=== PATIENT | female | born 2000 | race Hispanic/Latino ===

== ENCOUNTER 2024-05-17 13:43 | Emergency (ER) | payer MEDICAID ==
[~2024-05-17] VITALS: Ht 157.5 cm; Wt 59.0 kg
[2024-05-17 13:45] VITALS: TEMP 98.8
[2024-05-17 14:10] LABS: BASOPHILS # (AUTO) 0.02 K/uL (0.00-0.20); BASOPHILS % (AUTO) 0.3 % (0.0-5.0); EOSINOPHILS # (AUTO) 0.12 K/uL (0.00-0.70); EOSINOPHILS % (AUTO) 1.9 % (0.0-8.0); IMMATURE GRANULOCYTE ABSOLUTE 0.02 K/uL (0-1); LYMPHOCYTES # (AUTO) 2.3 K/uL (1.0-4.8); MEAN CORPUSCULAR HEMOGLOBIN 29.1 pg (27.0-33.0); MEAN CORPUSCULAR HGB CONC 32.7 g/dL (32.0-36.0); MEAN CORPUSCULAR VOLUME 88.9 fL (79-99); MONOCYTES # (AUTO) 0.4 K/uL (0.1-1.0); MONOCYTES % (AUTO) 5.4 % (3.0-13.0); NEUTROPHILS # (AUTO) 3.7 K/uL (1.8-7.7); NEUTROPHILS % (AUTO) 57.1 % (40.0-77.0); PLATELET COUNT (AUTO) 304 K/uL (130-400); RED BLOOD CELL COUNT(AUTO) 4.61 MIL/uL (4.00-5.50); RED CELL DISTRIBUTION WIDTH 12.9 % (11.0-15.5); WHITE BLOOD COUNT (AUTO) 6.5 K/uL (4.8-10.8)
[2024-05-17 14:23] LABS: CREATININE 0.6 mg/dL (0.5-1.0); POTASSIUM 4.1 mmol/L (3.5-5.1)
--- NOTE | 2024-05-17 15:14 | HMCIMG ---
US OB <14 WEEKS REASON: vaginal bleeding during COMPARISON: None TECHNIQUE: Routine sonogram was performed. FINDINGS: Uterus is 8.1 x 3.2 x 3.7 cm. Endometrium is 4 mm. There is no evidence of an intrauterine gestational sac. Both ovaries appear normal. There are no adnexal masses. There is no abnormal vascularity. There is no free fluid in the cul-de-sac. IMPRESSION: 1. Normal pelvic sonogram. 2. These findings are nonspecific, a very early less than 5 gestation is common cause of these findings, spontaneous miscarriage can result in this appearance as well.
[2024-05-17 15:32] VITALS: BP 113/74; PULSE 68; RESP 15; O2SAT 98
[2024-05-17 15:38] LABS: APPEARANCE,URINE CLEAR (CLEAR); BILIRUBIN,URINE NEGATIVE (NEGATIVE); COLOR,URINE COLORLESS (YELLOW); GLUCOSE, URINE (UA) NEGATIVE (NEGATIVE); KETONES,URINE NEGATIVE (NEGATIVE); LEUKOCYTE ESTERASE ,URINE NEGATIVE Leu/uL (NEGATIVE); NITRATE,URINE NEGATIVE (NEGATIVE); OCCULT BLOOD,URINE LARGE (NEGATIVE); PROTEIN,URINE NEGATIVE (NEGATIVE); UROBILINOGEN,URINE 0.2 mg/dL (0.2-1.0)
--- NOTE | 2024-05-17 15:45 | ERN ---
General Chief Complaint: Vaginal Bleeding Stated Complaint: VAGINAL BLEEDING Time Seen by MD: 13:46 Time Seen by Midlevel: 13:46 Source: patient History of Present Illness Initial Comments Patient is a 23-year-old female with no significant past medical history presenting to the emergency department with lower abdominal cramping and vaginal bleeding. Patient states she received a positive test earlier this week. She reports her last menstrual period being April 05, 2024. She is a A0. She was seen at a local urgent care five days ago where she had a positive test confirmed. Yesterday she was seen at [facility] where she had an ultrasound performed however they were unable to visua lize an intrauterine gestation. At that time she had a hCG quant of 100. Allergies: Coded Allergies: No Known Drug Allergies (Unverified Allergy, Unknown, 05/17/24) Past Medical History Past Medical History: No Pertinent History Past Surgical History: None Female( History) LMP: Apr 05, 2024 : 1 Para: 0 Aborts: 0 ROS Dictation CONSTITUTIONAL: Negative except for HPI HEAD/FACE: Negative except for HPI EENT: Negative except for HPI RESPIRATORY: Negative except for HPI GASTROINTESTINAL/ABDOMINAL: Negative except for HPI GENITOURINARY: Negative except for HPI MUSCULOSKELETAL: Negative except for HPI INTEGUMENTARY: Negative except for HPI NEUROLOGICAL/PSYCH: Negative except for HPI HEMATOLOGIC/LYMPHATIC: Negative except for HPI All Systems Negative, Except as noted above. 13 point review of systems assessed and all negative except for above. Physical Exam Physical Exam Dictation Vital Signs reviewed General Appearance: Alert, oriented x 3, no acute distress, well developed, nourished. Head and Face: non-traumatic. Eyes: PERRL, pink conjunctivas, eyelid no trauma, anterior chamber with arcus senilis. Ears: Pinnas intact and no signs of trauma or erythema ear canals clear and no discharge TM no erythema Nose: No discharge, no bleeding. Oropharynx: Mouth normal, tongue pink, pharynx clear,no erythema, tonsils no exudates, no abscesses noted, mucous membrane moist Neck: Supple, non-tender, no thyromegaly, no masses, no JVD, no bruits Breast:Deferred Chest:No tenderness, no crepitus, no paradoxical movement, no retractions Lungs:Clear, well-ventilated, symmetric, no rales, no wheezing, no rhonchi, no stridor, good breath sounds bilaterally Heart: Regular rate, regular rhythm, no murmur, no gallops Vascular: no peripheral edema, Abdomen: Soft, positive bowel sounds, nondistended, no guarding, nontender, no rebound, no masses no hepatomegaly, no splenomegaly, no Brown's sign, no hernias. Rectal: Deferred Genital: Deferred Neurological: Normal speech, motor function intact, sensory function intact Musculoskeletal: Neck nontender, full range of motion, back nontender, full range of motion, Extremities: nontender, full range of motion Skin: Color pink, dry, no turgor, no rash, no lacerations, no abrasions, no contusions. Lymphatic: Deferred Results Laboratory and Microbiology Lab and Micro Result Laboratory Tests Test 05/17/24 13:59 05/17/24 15:20 White Blood Count 6.5 K/uL (4.8-10.8) Red Blood Count 4.61 MIL/uL (4.00-5.50) Hemoglobin 13.4 g/dL (12.0-16.0) Hematocrit 41.0 % (36-48) Mean Corpuscular Volume 88.9 fL (79-99) Mean Corpuscular Hemoglobin 29.1 pg (27.0-33.0) Mean Corpuscular Hemoglobin Concent 32.7 g/dL (32.0-36.0) Red Cell Distribution Width 12.9 % (11.0-15.5) Platelet Count 304 K/uL (130-400) Mean Platelet Volume 10.6 fL (7.5-10.5) H Immature Granulocyte % (Auto) 0.3 % (0-1) Neutrophils (%) (Auto) 57.1 % (40.0-77.0) Lymphocytes (%) (Auto) 35.0 % (21.0-51.0) Monocytes (%) (Auto) 5.4 % (3.0-13.0) Eosinophils (%) (Auto) 1.9 % (0.0-8.0) Basophils (%) (Auto) 0.3 % (0.0-5.0) Neutrophils # (Auto) 3.7 K/uL (1.8-7.7) Lymphocytes # (Auto) 2.3 K/uL (1.0-4.8) Monocytes # (Auto) 0.4 K/uL (0.1-1.0) Eosinophils # (Auto) 0.12 K/uL (0.00-0.70) Basophils # (Auto) 0.02 K/uL (0.00-0.20) Absolute Immature Granulocyte (auto 0.02 K/uL (0-1) Nucleated Red Blood Cells 0.0 % (0.0-0.19) Sodium Level 136 mmol/L (136-145) Potassium Level 4.1 mmol/L (3.5-5.1) Chloride Level 100 mmol/L (101-111) L Carbon Dioxide Level 30 mmol/L (21-32) Blood Urea Nitrogen 7 mg/dL (7-18) Creatinine 0.6 mg/dL (0.5-1.0) Glomerular Filtration Rate Calc 130 mL/min (>90) Random Glucose 86 mg/dL (70-105) Total Calcium 9.3 mg/dL (8.5-10.1) Human Chorionic Gonadotropin, Quant 104 mIU/mL (0-5) H Urine Color COLORLESS (YELLOW) Urine Appearance CLEAR (CLEAR) Urine pH 6.0 (5.0-8.0) Urine Specific [place] 1.004 (1.001-1.031) Urine Protein NEGATIVE mg/dL (NEGATIVE) Urine Glucose (UA) NEGATIVE mg/dL (NEGATIVE) Urine Ketones NEGATIVE mg/dL (NEGATIVE) Urine Occult Blood LARGE (NEGATIVE) H Urine Nitrate NEGATIVE (NEGATIVE) Urine Bilirubin NEGATIVE mg/dL (NEGATIVE) Urine Urobilinogen 0.2 mg/dL (0.2-1.0) Urine Leukocyte Esterase NEGATIVE [place]/uL Urine RBC 0-1 /HPF (0-1) Urine WBC 0-1 /HPF (0-1) Urine Squamous Epithelial Cells RARE /HPF (0-2) Urine Bacteria RARE /HPF (None Seen) Labs Reviewed?: Yes MDM MDM: Patient is a 23-year-old female with no significant past medical history presenting to the emergency department with lower abdominal cramping and vaginal bleeding. Patient states she received a positive test earlier this week. She reports her last menstrual period being April 05, 2024. She is a A0. She was seen at a local urgent care five days ago where she had a positive test confirmed. Yesterday she was seen at [facility] where she had an ultrasound performed however they were unable to visualize an intrauterine gestation. At that time she had a hCG quant of 100. On physical examination patient is tearful however the remainder of her physical examination is unremarkable. There was no abdominal tenderness. Vital signs are stable. Patient is nontoxic appearing. CBC and chemistries are unremarkable. Her hCG quant today is 103 which is almost unchanged from y day's hCG quant of 100. Pelvic ultrasound was performed which does not show an intrauterine gestation this may be related to an extremely early versus a spontaneous miscarriage. This was discussed with the patient she was advised to follow up with her OBGYN within the next week for repeat hCG testing and repeat ultrasound. Differential diagnosis: 1st trimester , ectopic , urinary tract infection There are no social concerns with this patient. Prescription drug management Prescriptions will include: None Medical management and examination interpretation discussions were had by me with other qualified healthcare professionals as indicated for the patient's care. ED Course Orders Procedure Category Date Status Time Cbc With Differential LAB 05/17/24 Complete 13:55 Basic Metabolic Panel LAB 05/17/24 Complete 13:55 Hcg,Quantitative LAB 05/17/24 Complete 13:55 Urinalysis Profile LAB 05/17/24 Complete 13:55 Us Ob <14 Weeks US 05/17/24 Resulted 13:55 Vital Signs Date Time Temp Pulse Resp B/P (MAP) Pulse Ox O2 Delivery O2 Flow Rate FiO2 05/17/24 15:32 68 15 113/74 98 Room Air* 0 21 05/17/24 13:45 98.8 82 20 117/87 98 Room Air [address] [address] IMAGING REPORT Signed PATIENT: OUMOU STANLEY MR#: [id number] : 2000 SEX: F AGE: 23 LOCATION: [facility] ORDER [id number] STATUS: REG ER REPORT#: [id number] SERVICE 1355 REASON: vaginal bleeding during ORDERING PHYSICIAN: ALEXANDREA CYR PROCEDURE: OB <14 - US OB <14 WEEKS US OB <14 WEEKS REASON: vaginal bleeding during COMPARISON: None TECHNIQUE: Routine sonogram was performed. FINDINGS: Uterus is 8.1 x 3.2 x 3.7 cm. Endometrium is 4 mm. There is no evidence of an intrauterine gestational sac. Both ovaries appear normal. There are no adnexal masses. There is no abnormal vascularity. There is no free fluid in the cul-de-sac. IMPRESSION: 1. Normal pelvic sonogram. 2. These findings are nonspecific, a very early less than 5 gestation is common cause of these findings, spontaneous miscarriage can result in this appearance as well. DICTATED BY: MARTIN MARTINEZ MD DATE: 05/17/241509 ELECTRONICALLY SIGNED BY: MARTIN MARTINEZ MD DATE: 05/17/241513 DX & DISP Disposition: Discharge Departure Impression: Primary Impression: Positive test Additional Impression: Vaginal bleeding affecting early Condition: Stable Additional Instructions: Your blood work today is stable. Your hCG quant today is 104. Your pelvic ultrasound is normal. These findings are nonspecific however they may represent an early or potentially a spontaneous miscarriage. You will need to follow up with your primary care doctor or OBGYN in the next 24-48 hours for repeat hCG testing. Please report to the ER if you develop any new or worsening symptoms. Referrals: SELF,REFERRAL (PCP) MAXINE AIKEN MD Time of Disposition: 15:44 I have reviewed the case, and I agree with, Diagnosis and Plan ALEXANDREA CYR May 17, 2024 15:45
[2024-05-17 15:47] LABS: ADD UA MICROSCOPIC YES
[2024-05-17 16:19] LABS: BACTERIA,URINE RARE /HPF (None Seen); RBC,URINE 0-1 /HPF (0-1); SQUAMOUS EPITHELIAL CELL,UR RARE /HPF (0-2); WBC,URINE 0-1 /HPF (0-1)
== END 2024-05-17 17:56 | disposition home or self-care (01) ==
LOC: EDH 13:43
DX: O20.9 Hemorrhage in early pregnancy, unspecified (principal); O26.891 Other specified pregnancy related conditions, first trimester; R10.2 Pelvic and perineal pain; Z3A.00 Weeks of gestation of pregnancy not specified
CPT/HCPCS: 36415; 76801; 80048; 81001; 84702; 85025; 99284